=== PATIENT | male | born 1960 | race Caucasian/White ===

== ENCOUNTER 2017-06-17 07:15 | Observation (INO) | payer BC, OTHER ==
[2017-06-17 08:38] LABS: Urine Bacteria Absent (Absent); Urine Bilirubin Negative (Negative); Urine Glucose 3+(>=500 mg/dL) (Negative); Urine Nitrite Negative (Negative)
[2017-06-17 08:38] LABS: Hematocrit 43 % (42-52); Hemoglobin 15.2 g/dl (14.0-18.0); Mean Corpuscular HGB Conc 35 g/dl (31-36); Mean Corpuscular Hemoglobin 32 pg (27-31); Mean Corpuscular Volume 90 fL (80-94); Mean Platelet Volume 8 um3 (7.4-10.4); Red Blood Count 4.77 10^6/ul (4.0-5.4); Red Cell Distribution Width 14 % (10.5-15); White Blood Count 11.3 10^3/ul (3.5-10.8)
[2017-06-17 08:49] LABS: Albumin 4.1 g/dL (3.2-5.2); BUN/Creatinine Ratio 18.3 (8-20); Calcium 9.3 mg/dL (8.6-10.3); EGFR African American 108.1 (>60); Globulin 2.9 g/dL (2-4); Potassium 3.7 mmol/L (3.5-5.0); Total Bilirubin 1.9 mg/dL (0.2-1.0)
[2017-06-17] MEDS ORDERED: cefTRIAXone(*) 1 GM in NS 0.9% 50 ML* 50 ML IVPB ONE ×2 (09:05→10:34)
--- NOTE | 2017-06-17 09:55 | RAD ---
CLINICAL HISTORY: Right lower abdominal pain COMPARISON: September 15, 2013 TECHNIQUE: Multiple contiguous axial CT scans were obtained of the abdomen and pelvis, without intravenous contrast enhancement. Coronal and sagittal multiplanar reformations are submitted for review. Oral contrast was not administered. FINDINGS: The study is limited by the lack of intravenous contrast. This limits evaluation of the solid organs and vasculature. LUNG BASES: The lung bases are clear. LIVER: The liver is normal in shape, size, contour, and attenuation. BILE DUCTS: There is no intrahepatic or extrahepatic biliary dilatation. GALLBLADDER: The gallbladder is normal, without pericholecystic inflammatory change. PANCREAS: The pancreas is normal, without mass or ductal dilatation. SPLEEN: The spleen is at the upper limits of normal in size UPPER GI TRACT: Evaluation of the gastrointestinal tract is limited by incomplete gastric distention. The upper GI tract is unremarkable. SMALL BOWEL AND MESENTERY: The small bowel is normal in contour, course, and caliber. There is no obstruction or dilatation. COLON: There is extensive diverticulosis throughout the colon. There is no appreciable pericolonic inflammatory change. There is a tubular, vermiform, hollow viscus that is blind ending, and originates from the cecum, consistent with a normal appendix. There is no periappendiceal inflammatory change. This is best seen on coronal images 41 through 47. ADRENALS: Normal bilaterally. KIDNEYS: There are multiple small left renal calyceal stones measuring up to 0.3 cm in size. There is a 0.6 cm calculus of the left UVJ. There is mild left pelviectasis. BLADDER: As noted above, there is a left UVJ calculus. PELVIC ORGANS: The prostate is diffusely enlarged. The seminal vesicles are symmetric. AORTA: There is calcific atherosclerotic disease of the abdominal aorta and its branches, without aneurysmal dilatation IVC: Unremarkable LYMPH NODES: There is no lymphadenopathy by size criteria. ABDOMINAL WALL: There is a small fat-containing umbilical hernia. BONES AND SOFT TISSUES: Degenerative changes are noted OTHER: None IMPRESSION: 1. 0.6 CM CALCULUS OF THE LEFT UVJ WITH MILD PELVIECTASIS. 2. EXTENSIVE DIVERTICULOSIS THROUGHOUT THE COLON. 3. ENLARGED PROSTATE.
[2017-06-17] MEDS ORDERED: Acetaminophen TAB* 325 MG PO ONE (10:12)
[2017-06-17] MEDS ORDERED: NS 0.9% 1000 ML* 2,000 ML IV ONE (10:12)
[2017-06-17] MEDS ORDERED: Iohexol 180 (CONTRAST) 10 ML SDV IV ONE (10:56)
[2017-06-17] MEDS ORDERED: Dexamethasone IV* 4 MG/ML 1 ML (4 MG) ONE (11:18)
[2017-06-17] MEDS ORDERED: Famotidine IV* 10 MG/ML 2 ML (20 mg) ONE (11:18)
[2017-06-17] MEDS ORDERED: Ondansetron INJ* 2 MG/ML VIAL ONE (11:18)
[2017-06-17] MEDS ORDERED: Metoclopramide IV* 5 MG/ML 2 ML VIAL ONE (11:18)
[2017-06-17] MEDS ORDERED: Midazolam* 1 MG/ML 5 ML VIAL (5 MG) ONE (11:18)
[2017-06-17] MEDS ORDERED: Propofol* 10 MG/ML 20 ML BTL IV PUSH ONE (11:18)
[2017-06-17] MEDS ORDERED: fentaNYL* 50 MCG/ML 2 ML VIAL (100 MCG VIAL) ONE (11:18)
[2017-06-17] MEDS ORDERED: Chloroprocaine 2%* 20 ML VIAL ONE (11:19)
[2017-06-17] MEDS ORDERED: Acetaminophen TAB* 325 MG PO PRN (11:20)
[2017-06-17] MEDS ORDERED: Ondansetron INJ* 2 MG/ML VIAL IV PRN ×2 (11:20→11:24)
[2017-06-17] MEDS ORDERED: DiMENhydriNATE IV* 50 MG/ML VIAL IV PUSH PRN (11:24)
[2017-06-17] MEDS ORDERED: oxyCODONE/Acetamin 5/325 MG* TAB PO PRN (11:24)
[2017-06-17] MEDS ORDERED: Buffered Lidocaine 0.9% SYRIN* 5 ML/SYR SYRINGE INTRADERM ONE (11:24)
[2017-06-17] MEDS ORDERED: fentaNYL* 50 MCG/ML 2 ML VIAL (100 MCG VIAL) IV PRN (11:24)
[2017-06-17] MEDS ORDERED: NS 0.9% 1000 ML* 1,000 ML IV ONE (11:28)
[2017-06-17] MEDS ORDERED: NS 0.9% 1000 ML* 1,000 ML IV SCH (11:30)
--- NOTE | 2017-06-17 12:13 | RAD ---
HISTORY: Preop, abdominal pain COMPARISONS: April 28, 2005 VIEWS:1: Single frontal portable view of the chest at 7:25 AM FINDINGS: LINES AND TUBES: None. CARDIOMEDIASTINAL SILHOUETTE: The cardiomediastinal silhouette is normal for portable technique. PLEURA: The costophrenic angles are sharp. No pleural abnormalities are noted. LUNG PARENCHYMA: The lungs are clear. ABDOMEN: The upper abdomen is clear. There is no subphrenic gas. BONES AND SOFT TISSUES: No bone or soft tissue abnormalities are noted. IMPRESSION: NO ACTIVE CARDIOPULMONARY DISEASE.
--- NOTE | 2017-06-17 12:47 | RAD ---
INDICATION: Retrograde pyelogram and stent placement COMPARISONS: CT dated June 17, 2017 TECHNIQUE: Fluoroscopy was provided for a retrograde pyelogram and stent placement. Total fluoroscopy time is: 7 seconds FINDINGS: Contrast is noted within the renal collecting system. A ureteral stent is noted. IMPRESSION: FLUOROSCOPY WAS PROVIDED FOR A RETROGRADE PYELOGRAM AND STENT PLACEMENT CPT II Codes: 6045F
--- NOTE | 2017-06-17 12:52 | HP ---
CC: Dr. Adamson; Dr. Coronel * HISTORY AND PHYSICAL: DATE OF ADMISSION: 06/17/17 PRIMARY CARE PROVIDER: Dr. Adamson. ATTENDING PHYSICIAN WHILE IN THE HOSPITAL: Dr. Candace Loco * (report dictated by Diane Calvillo NP). CHIEF COMPLAINT: 1. Dysuria. 2. Urgency. 3. Pain with defecation. HISTORY OF PRESENTING ILLNESS: Mr. Stewart is a 56-year-old male patient who has a history of nephrolithiasis, hypertension, not taking any medications anymore. When he stopped smoking, the blood pressure improved. He has a history of GERD and BPH. He comes into the ER today. He says that last night, he got up. He was feeling weak, feeling tired, he felt febrile. He was having trouble urinating, urgency, frequency, and dysuria. He also had some pain with defecation, which he felt like more pressure. He had some urgency throughout the day yesterday, but the dysuria started last night. He was concerned because of the fever and the dysuria and he decided to come in to the ER today to be evaluated as he has had kidney stones in the past. He denied any nausea, vomiting, and he states that he has some flank pain on his right side. Denies having any chest pain or shortness of breath. Says that he is pretty active. He can walk up a flight of stairs. He does not get any chest pain or shortness of breath. The patient was evaluated in the ED. It was ultimately found on the CT scan that he did have a stone in his left ureter and it appeared that again he was noted to be febrile, had a little bit of a white count. In addition to this, also had abnormal UA. Because of this, hospitalist service was asked to evaluate for admission. PAST MEDICAL HISTORY: Significant for: 1. Nephrolithiasis. 2. GERD. 3. BPH. 4. Hypertension. PAST SURGICAL HISTORY: 1. He has had a hernia repair. 2. He has had kidney stone extraction. HOME MEDICATIONS: He takes Advil 1 to 2 tablets p.r.n. daily as needed for pain. ALLERGIES TO MEDICATIONS: No known drug allergies. FAMILY HISTORY: Mother had a history of end-stage renal disease. Father had a history of dementia. SOCIAL HISTORY: He is a former smoker. He rarely drinks alcohol. Surrogate decision maker is his . REVIEW OF SYSTEMS: There is documented fever here. He did admit to having fevers at home. He denies having any significant weight change. There was no double vision. There is no ear discharge. He denies having any rhinorrhea. No sore throat. No thyroid enlargement. He denied having any chest pain. There was no orthopnea. No nocturnal dyspnea. There was abdominal pain per my HPI. There was frequency, dysuria, and urgency. He does admit to having some right flank pain. He denies having any chest pain with exertion. Review of 14 systems completed, all others were negative. PHYSICAL EXAMINATION GENERAL: At this time, Mr. Stewart is a 56-year-old male patient. He appears to be well-nourished, well-developed. He does not appear to be in any acute distress. VITAL SIGNS: Blood pressure 119/59, pulse 81, respirations 17, O2 sat 96%, temperature 101.9. HEENT: Head is atraumatic and normocephalic. Eyes: EOMs are intact. Sclerae anicteric and not pale. Throat: Oral mucosa appears to be moist. No oropharyngeal erythema. NECK: Supple. LUNGS: Clear to auscultation bilaterally. No wheezes, rales, or rhonchi. HEART: Sounds S1, S2. Regular rate and rhythm. No murmurs, rubs, or gallops. ABDOMEN: Soft. It was flat. It was nontender. Bowel sounds present. He did have some CVA tenderness actually on the right side. EXTREMITIES: Pulses were 2+ throughout. He had no peripheral edema. He is able move all 4 extremities with 5/5 strength. NEUROLOGICAL: The patient is awake, alert, and oriented x3. No gross focal deficits. SKIN: Intact. LABORATORY DATA/DIAGNOSTIC STUDIES: Today revealed a WBC of 11.3, RBC of 4.77 , hemoglobin 15.2, hematocrit of 43, platelet count of 129. The chemistries revealed sodium 134, potassium 3.7, chloride of 102, bicarb 25, BUN 17, creatinine of 0.93. Glucose was 256, his lactic was 2.8, his calcium was 9.3, his total bilirubin 1.9, AST 13, ALT 11, alk phos 52, albumin 4.1. Urine showed 1+ blood, 3+ leukocyte esterase, 3+ wbc, 1+ rbc, and 3+ glucose. He did have an abdomen and pelvis CT, which showed: Impression: 1. A 0.6 cm calculus in the left UVJ with mild pelviectasis. 2. Extensive diverticulosis throughout the colon. 3. Enlarged prostate. He had an EKG obtained today, which showed a normal sinus rhythm, rate of 79, no ST elevation or T-wave inversions were noted. Old medical records were reviewed. ASSESSMENT AND PLAN: Mr. Stewart is a 56-year-old male patient coming into the ER today with complaints of dysuria, fever, and on evaluation found to have a left- sided nephrolithiasis. He will be admitted under observation status for: 1. Nephrolithiasis with associated infection and most likely prostatitis. At this point, again he did have pain with defecation. He certainly does have acute cystitis and he is tender on the right side to CVA palpation. My plan at this point is again Urology has been involved. They are going to go ahead and perform a ureteral stenting to the left side. I will hydrate him aggressively with 3 L of fluid. Blood cultures were sent. His lactic was mildly elevated at 2.8. We will repeat this. We will panculture him. He is on antibiotics currently in the form of Rocephin. He got gentamicin in the ED. We will continue the Rocephin and we will await culture and sensitivity. His RCRI, he has low risk for proposed procedure. I am just getting an EKG, the EKG looked stable and just waiting for the chest x-ray because of the history of smoking. 2. Elevated glucose. Again his random glucose is 256, he had 3+ glucose. I will check an A1c and if this is elevated, we may need to consider starting something like metformin and get in touch with [facility]. 3. Gastroesophageal reflux disease. Not an active issue. He can follow with his primary. 4. Benign prostatic hypertrophy. He is no longer taking Flomax. He can follow up with his primary urologist. 5. History of hypertension. His blood pressure here is stable at 119. We will monitor. 6. Hypertension: He can follow with his primary. 7. DVT prophylaxis. He is low risk. He will be placed on SCDs. 8. Code status. He is full code. 9. Fluids, electrolytes, and nutrition. I am going to with 3 L of fluid wide open right now and then in addition to this, we will go ahead and put him on normal saline at 120 for an hour. After the procedure, he can certainly proceed to a regular diet. TIME SPENT: On the admission approximately 60 minutes; greater than half the time was spent [id number] with the patient obtaining my history and physical; other half the time was spent going over the plan of care with the patient and implementing the plan of care. I did discuss the plan of care with my attending physician, Dr. Loco; she is in agreement. DIANE CALVILLO NP [id number]/CPS #: [id number] ISHMAEL
--- NOTE | 2017-06-17 16:39 | OP ---
CC: Dr. Adamson * DATE OF OPERATION: 06/17/17 - ROOM #332 DATE OF : 60 SURGEON: Bruce Coronel MD. ANESTHESIOLOGIST: Dr. Denis Ramirez ANESTHESIA: Spinal. PRE-OP DIAGNOSES: 1. Distal left ureteral calculus. 2. Urinary tract infection. POST-OP DIAGNOSES: 1. Distal left ureteral calculus. 2. Urinary tract infection. OPERATIVE PROCEDURE: 1. Cystoscopy. 2. Left retrograde pyelography and placement of left ureteral stent (6-Equatorial Guinean). INDICATION FOR PROCEDURE: Mr. Stewart is a 56-year-old white male who is a known stone former and who had required left ureteroscopy laser lithotripsy for a 1.2 cm calculus in August 2013. He was worked up 5 months ago because of microscopic hematuria and had a CT urogram, which showed a nonobstructing left renal calculus. Cystoscopy was negative. The patient presented to the emergency room this morning with urgency, frequency , burning on urination and bilateral back pain. In the emergency room, his urine was positive for infection. He spiked a temperature of 38.7. His white count was elevated with a shift. Noncontrast CT of the abdomen and pelvis showed a 6 mm calculus in the distal left ureter associated with mild to moderate hydronephrosis. Blood and urine cultures were obtained. IV Rocephin and gentamicin were given. The patient is taken to the operating room on an urgent basis for placement of left ureteral stent. PATHOLOGY AT CYSTOSCOPY: The penile and bulbar urethrae looked normal. The prostatic urethra measured about 2.5 cm in length and there was moderate enlargement and obstruction by the prostate. The urine in the bladder was cloudy. There were no changes of cystitis. There was a cluster of grayish crystals in the base of the bladder that had the appearance of calcium phosphate stones. Left retrograde pyelography showed moderate left hydronephrosis. There was no resistance to the introduction of the guidewire in the distal ureter. DESCRIPTION OF PROCEDURE: After successful spinal anesthesia, the patient was placed in the lithotomy position and was prepped and draped for a cystoscopy. Cystoscopy was performed. The bladder was entered and drained and the urine looked cloudy. Cystoscopy was then performed. The above findings were noted. A flexible-tip guidewire was then introduced into the left orifice and passed without difficulty into the area of the renal pelvis. An open-ended catheter was then fed on top of the guidewire and positioned in the renal pelvis; 2 cc of contrast were then injected delineating the collecting system. A size 6-Equatorial [place]inean stent was then placed with the proximal end coiling in renal pelvis and the distal end coiling inside the bladder. There was good drainage of contrast from the kidney with decompression of the hydronephrosis. Bladder was then emptied and the cystoscope was removed. The patient tolerated the procedure well and left the operating room in good condition. [id number]/CPS #: [id number] [facility]
[2017-06-17] MEDS: HYDROcodone/ACETAMIN 5-325 MG* 1 TAB PO PRN (19:58)
[2017-06-18 05:41] LABS: Hematocrit 38 % (42-52); Hemoglobin 13.2 g/dl (14.0-18.0); Mean Corpuscular HGB Conc 34 g/dl (31-36); Mean Corpuscular Hemoglobin 32 pg (27-31); Mean Corpuscular Volume 92 fL (80-94); Mean Platelet Volume 8 um3 (7.4-10.4); Red Blood Count 4.19 10^6/ul (4.0-5.4); Red Cell Distribution Width 13 % (10.5-15); White Blood Count 11.2 10^3/ul (3.5-10.8)
[2017-06-18 05:54] LABS: BUN/Creatinine Ratio 31.3 (8-20); Calcium 8.7 mg/dL (8.6-10.3); EGFR African American 166.4 (>60); EGFR Non-African American 129.4 (>60); Potassium 4.1 mmol/L (3.5-5.0)
[2017-06-18] MEDS: HYDROcodone/ACETAMIN 5-325 MG* 1 TAB PO PRN (07:30)
[2017-06-18 08:15] VITALS: BP 133/62
[2017-06-18] MEDS ORDERED: cefTRIAXone VIAL(*) 1,000 MG in NS 0.9% 50 ML* 50 ML IVPB SCH (10:00)
--- NOTE | 2017-06-19 05:20 | DS ---
CC: Dr. Bruce Coronel; Dr. Mauricio Adamson * DISCHARGE SUMMARY: DATE OF ADMISSION: 06/17/17 DATE OF DISCHARGE: 06/18/17 ADMISSION DIAGNOSES: 1. Nephrolithiasis. 2. Urinary tract infection. 3. Elevated blood glucose. SECONDARY DIAGNOSES: 1. Gastroesophageal reflux disease. 2. Benign prostatic hypertrophy. 3. Hypertension. DISCHARGE DIAGNOSES: 1. Nephrolithiasis. 2. Urinary tract infection. 3. Elevated blood glucose. 4. Gastroesophageal reflux disease. 5. Benign prostatic hypertrophy. 6. Hypertension. HOSPITAL COURSE: The patient is a 56-year-old gentleman who presented to [facility] with a chief complaint of pain on urination, urgency. Patient was found to have a 0.6 cm calculus in the left UVJ and enlarged prostate. The patient was seen by Urology in consultation. The patient was placed on Rocephin IV. The patient did have a cystoscopy and a left ureteral stent placement. The patient was feeling much improved by the date of discharge and anxious to go home. He will follow up with his PCP and Dr. Coronel as an outpatient. PHYSICAL EXAMINATION: On the date of discharge, well-developed, well-nourished gentleman, sitting up in bed, in no acute distress. Vital Signs: Blood pressure 133/62, pulse oxygenation 100% on room air, respiratory rate 18 breaths per minute, heart rate 54 beats per minute, temperature 98.1 degrees. HEENT: Normocephalic, atraumatic. Pupils equal, round, reactive to light. He has got moist mucous membranes. His neck is supple. No JVD, bruits, palpable thyroid, or lymphadenopathy. His chest is clear to auscultation and percussion bilaterally. Cardiovascular Exam: S1, S2 appreciated. Regular rate and rhythm. Abdominal Exam: Positive bowel sounds in all 4 quadrants, soft, nontender, nondistended. Extremities: No cyanosis, clubbing, or edema. +2 peripheral pulses bilaterally. Neuro: Alert and oriented x3. Moves all extremities. Skin: No rashes or abnormalities. STUDIES DONE WHILE IN THE HOSPITAL: Abdominal pelvic CT 06/17/17, impression: 0.6 cm calculus in the left UVJ with mild pelviectasis. Extensive diverticulosis throughout the colon and enlarged prostate. Retrograde pyelogram 06/17/17, impression: Fluoroscopy was provided for retrograde pyelogram and stent placement. Chest x-ray, 06/17/17, impression: No active cardiopulmonary disease. DISCHARGE MEDICATIONS: 1. Percocet 5/325 one tab every 6 hours as needed for pain. 2. Levaquin 500 mg daily for 7 more days. DISCHARGE PLAN: Patient is to discharged home. He is to follow up with his PCP this week and Dr. Coronel within 1 to 2 weeks. Patient is to return to ED if symptoms recur. There is concern his stone may not pass and still he may need further treatment such as lithotripsy but it is to be determined between him and his urologist. TIME SPENT: Over 40 minutes was spent on this discharge, more than 25 minutes of which was spent in direct [id number] contact with the patient in evaluation , physical exam, and counseling and coordination of care. [id number]/CPS #: [id number] MTDD
== END 2017-06-18 10:40 | disposition home or self-care (01) ==
LOC: ED 07:15 → OR 10:59 → SSU 13:45
PROVIDERS: ADMIT Urology; ATTEND Internal Medicine
DX: N13.6 Pyonephrosis (principal); R73.9 Hyperglycemia, unspecified; K21.9 Gastro-esophageal reflux disease without esophagitis; N40.0 Benign prostatic hyperplasia without lower urinary tract symptoms; I10 Essential (primary) hypertension; Z87.891 Personal history of nicotine dependence; K57.30 Diverticulosis of large intestine without perforation or abscess without bleeding
CPT/HCPCS: 36415; 71010; 74176; 74420; 80048; 80053; 81003; 81015; 83036; 83605; 85025; 85610; 87040; 87077; 87086; 87186; 93005; 96365; 99284; A9270-GY; C1876; G0378; J0696; J1100; J1580; J2250; J2400; J2405; J2704; J2765; J3010

== ENCOUNTER 2017-07-05 10:56 | Day surgery (SDC) | payer BC ==
--- NOTE | 2017-06-27 19:12 | HP ---
CC: Dr. Adamson * ADMITTING HISTORY AND PHYSICAL: DATE OF ADMISSION: 07/05/17 AGE/SEX: 56 years, male. PREOPERATIVE DIAGNOSES: 1. Left ureteral calculus. 2. Recent urinary tract infection. PLANNED PROCEDURE: Left ureteroscopy, possible laser and stent replacement. SURGEON: Dr. Razo. HISTORY OF PRESENT ILLNESS: Philippe Stewart Jr. is a 56-year-old gentleman who had recently undergone urgent left stent insertion for obstructing left ureteral calculus associated with a urinary tract infection. He had been treated with Levaquin and a followup urine culture obtained on 06/21/17 was negative. He is now being brought in for management of the left ureteral calculus. In addition, he also has a nonobstructing left renal calculus. PAST MEDICAL HISTORY: Significant for recurrent renal calculi. MEDICATIONS: On admission, oxycodone p.r.n. ALLERGIES: No known drug allergies. PHYSICAL EXAMINATION GENERAL: Reveals a pleasant, healthy-appearing middle-aged gentleman. VITAL SIGNS: Blood pressure is 138/90, pulse 90 per minute and regular, oxygen saturation 98% on room air. LUNGS: Clear bilaterally. CARDIOVASCULAR: Regular rate and rhythm. S1 and S2. ABDOMEN: Soft with mild left flank tenderness. IMPRESSION: A 56-year-old gentleman with a left ureteral calculus and associated urinary tract infection for which he had undergone placement of a left stent and treatment with antibiotics with resolution of the infection. PLAN: Left ureteroscopy, possible laser and stent replacement. [id number]/CPS #: [id number] MTDD
[~2017-07-05 10:56] MED LIST: Buffered Lidocaine 0.9% SYRIN* 5 ML/SYR SYRINGE INTRADERM ONE
[2017-07-05] MEDS ORDERED: cefTRIAXone(*) 2 GM ADDV.VIAL IVPB ONE (11:08)
[2017-07-05] MEDS ORDERED: Buffered Lidocaine 0.9% SYRIN* 5 ML/SYR SYRINGE ONE (11:09)
[2017-07-05] MEDS ORDERED: fentaNYL* 50 MCG/ML 2 ML VIAL (100 MCG VIAL) ONE (12:13)
[2017-07-05] MEDS ORDERED: Midazolam* 1 MG/ML 2 ML VIAL (2 MG) ONE (12:13)
[2017-07-05] MEDS ORDERED: Iohexol 180 (CONTRAST) 10 ML SDV IV ONE (12:28)
[2017-07-05] MEDS ORDERED: PROCHLORPERAZINE INJ 5 MG/ML 2 ML VIAL IV PRN (13:30)
[2017-07-05] MEDS ORDERED: HYDROcodone/ACETAMIN 5-325 MG* 1 TAB PO PRN (13:30)
[2017-07-05] MEDS ORDERED: fentaNYL* 50 MCG/ML 2 ML VIAL (100 MCG VIAL) IV PRN (13:30)
[2017-07-05] MEDS ORDERED: Acetaminophen TAB* 325 MG PO PRN (13:30)
[2017-07-05] MEDS ORDERED: DiMENhydriNATE IV* 50 MG/ML VIAL IV PUSH PRN (13:30)
[2017-07-05] MEDS ORDERED: Tamsulosin CAP* 0.4 MG ONE (14:10)
[2017-07-05 14:43] VITALS: BP 146/85
--- NOTE | 2017-07-05 14:43 | RAD ---
INDICATION: Stent replacement COMPARISONS: None relevant TECHNIQUE: Fluoroscopy was provided for a retrograde pyelogram and stent placement. Total fluoroscopy time is: 13 seconds FINDINGS: Spot images of the straight contrast within the renal collecting system. A ureteral stent is noted. IMPRESSION: FLUOROSCOPY WAS PROVIDED FOR A RETROGRADE PYELOGRAM AND STENT PLACEMENT CPT II Codes: 6045F
--- NOTE | 2017-07-05 15:21 | RAD ---
Indication: Postop LEFT retrograde pyelogram and stent replacement. Comparison: Intraoperative spot images of the same date. Technique: Supine view of the abdomen. Report: Unremarkable bowel gas pattern. Moderate stool in the colon without significant rectal distension. Typical partial obscuration of the renal fossa and course of the ureters by bowel contents No suspicious calcifications visualized at the level of the renal fossa or along the course of the ureters. LEFT ureteral stent in place. Multiple pelvic phleboliths noted. Unremarkable soft tissue contours. IMPRESSION: LEFT ureteral stent in place.
--- NOTE | 2017-07-06 06:00 | OP ---
CC: Dr. Adamson; Dr. Razo * DATE OF OPERATION: 07/05/17 - [facility] DATE OF : 60 SURGEON: Rusty Razo MD ANESTHESIOLOGIST: Michoacano Cortés MD ANESTHESIA: General. PRE-OP DIAGNOSES: 1. Left hydronephrosis. 2. Left ureteral calculus. 3. Recent urinary tract infection. POST-OP DIAGNOSES: 1. Left hydronephrosis. 2. Left ureteral calculus. 3. Recent urinary tract infection. OPERATIVE PROCEDURE: Cystoscopy, left stent removal, left retrograde pyelogram , left ureteroscopy and stone removal, left pyeloscopy, and left stent insertion. INDICATIONS: Philippe Stewart Junior is a 56-year-old gentleman, who had undergone urgent left stent insertion because of an obstructing calculus in the left distal ureter with an associated urinary tract infection. COMPLICATIONS: None. STENT USED: 7-Nigerian 28-cm silicone stent, left ureter. FINDINGS: 1. Markedly enlarged prostate. 2. Extensive calcifications noted on previously placed stent with residual left hydronephrosis noted. 3. Two soft friable calculi noted in left ureter. POSTOPERATIVE CONDITION: Stable. DESCRIPTION OF PROCEDURE: After induction of general anesthesia, the patient was placed in dorsal lithotomy position. Sequential compression devices were in place and functioning. Initial cystoscopy revealed a normal-appearing urethra, a moderately enlarged prostate. The bladder was examined, the stent was seen exiting from the left orifice with extensive calcifications on the distal surface of the stent. The stent was removed. Retrograde pyelogram revealed left hydronephrosis. A 6-Nigerian semi-rigid ureteroscope was introduced and advanced under direct vision. In the distal to mid ureter, there were 2 calculi noted. These did not have the typical appearance of calcium oxalate stones, but were whitish and friable. Using a 3-prong grasper, they were removed and broke up into smaller fragments which were sent for analysis. The ureteroscope was advanced all the way up into the renal pelvis and pyeloscopy was performed. The renal pelvis and the calyces were dilated. I did not see any additional calculi. The ureteroscope was withdrawn under direct vision and a 7-Nigerian 28-cm silicone stent was introduced without difficulty. The plan is to obtain a postoperative x-ray as the patient also has known left renal calculus that has not been treated and he will then be scheduled for stent removal depending on the x-ray findings. [id number]/[facility] #: [id number] MTDRose
== END 2017-07-05 14:55 | disposition home or self-care (01) ==
LOC: OR 10:56
PROVIDERS: ATTEND Urology
DX: N13.2 Hydronephrosis with renal and ureteral calculous obstruction (principal)
CPT/HCPCS: 74000; 74420; 82365; 88300; C1876; J0696; J1580; J2250; J3010

== ENCOUNTER 2018-01-31 09:50 | Day surgery (SDC) | payer BC ==
[2018-01-31] MEDS ORDERED: Buffered Lidocaine 0.9% SYRIN* 5 ML/SYR SYRINGE ONE (10:11)
[2018-01-31] MEDS ORDERED: Lidocaine 1% MPF wEPI 200,000* 30 ML SDV ONE (12:30)
[2018-01-31] MEDS ORDERED: Bupivacaine 0.25% SDV* 30 ML ONE (12:30)
[2018-01-31] MEDS ORDERED: Midazolam* 1 MG/ML 5 ML VIAL (5 MG) ONE (12:55)
[2018-01-31] MEDS ORDERED: fentaNYL* 50 MCG/ML 2 ML VIAL (100 MCG VIAL) ONE ×3 (12:55→15:28)
[2018-01-31] MEDS ORDERED: ceFAZolin 2 GM PREMIX (*) 2 GM/50 ML BAG IVPB ONE (12:55)
[2018-01-31] MEDS ORDERED: Propofol* 10 MG/ML 20 ML BTL IV PUSH ONE (13:38)
[2018-01-31] MEDS ORDERED: Lidocaine 2% PF * 5 ML VIAL ONE (13:38)
[2018-01-31] MEDS ORDERED: EPHEDrine (Pressors)* 50 MG/ML VIAL ONE (13:47)
[2018-01-31] MEDS ORDERED: Ketorolac INJ* 30 MG/ML 1 ML VIAL ONE (13:47)
[2018-01-31] MEDS ORDERED: DiMENhydriNATE IV* 50 MG/ML VIAL IV PUSH PRN (14:07)
[2018-01-31] MEDS ORDERED: HYDROcodone/ACETAMIN 5-325 MG* 1 TAB PO PRN (14:07)
[2018-01-31] MEDS ORDERED: oxyCODONE/Acetamin 5/325 MG* TAB PO PRN (14:07)
[2018-01-31] MEDS ORDERED: fentaNYL* 50 MCG/ML 2 ML VIAL (100 MCG VIAL) IV PRN (14:07)
[2018-01-31] MEDS ORDERED: Naloxone* 0.4 MG/ML 1 ML VIAL IV PRN (14:07)
[2018-01-31] MEDS ORDERED: Ondansetron INJ* 2 MG/ML VIAL ONE (14:11)
[2018-01-31] MEDS ORDERED: oxyCODONE/Acetamin 5/325 MG* TAB ONE (15:28)
[2018-01-31 15:37] VITALS: BP 114/75
--- NOTE | 2018-02-03 06:31 | OP ---
DATE OF OPERATION: 01/31/18 - [facility] DATE OF : 60 SURGEON: Augustin Delgadillo MD. MELTER HELPER: None available. ANESTHESIOLOGIST: Dr. Mireles. ANESTHESIA: General. PRE-OP DIAGNOSIS: Medial meniscus tear. POST-OP DIAGNOSIS: Medial meniscus tear with medial femoral condyle, medial compartment chondrosis. OPERATIVE PROCEDURE: Left knee arthroscopy with partial lateral meniscectomy, subtotal medial meniscectomy, and chondroplasty of medial femoral condyle. COMPLICATIONS: None. ESTIMATED BLOOD LOSS: Minimal. INDICATIONS: Philippe Stewart is a 57-year-old male who has had several months of persistent catching and locking type symptoms since 10/18/15. He had acute injury. He has failed conservative management including physical therapy, anti- inflammatories, and has elected to proceed with surgical treatment. He has persistent mechanical symptoms. Risks and benefits of surgery were discussed at length including but not limited to bleeding, infection, damage to nerves, vessels, surrounding structures, wound nonhealing, persistent pain, need for further surgery, scarring, stiffness, incomplete relief of symptoms, and risks of anesthesia. DESCRIPTION OF PROCEDURE: The patient was greeted in the preoperative area by the attending surgeon. Correct extremity was marked and consent was confirmed. The patient was brought back to the operating suite where he was placed in supine position on the operating room table. He then underwent general anesthesia and endotracheal intubation after which he was appropriately positioned on the bed. An unsterile tourniquet was placed high on the proximal thigh. Lateral post was positioned. The left leg was then prepped and draped in the usual sterile beginning with chlorhexidine soap, scrub, alcohol wipe, and a final prep of ChloraPrep. After appropriate surgical pause indicating side, site, and procedure, administration of antibiotics, the knee was intraarticularly injected with 1% lidocaine with epi. An anterolateral portal was made sharply with an 11 blade. Scope was introduced into the joint. Joint was examined. There were grade 0 to 1 changes of the patellofemoral joint. The medial and lateral gutters were intact with erythema but no loose bodies. The ACL and PCL were intact. In the notch, there was abundant fat pad anteriorly that was debrided back. Scope was brought into the medial compartment where there was evidence of chondrosis grade 2 changes to the medial femoral condyle and medial plateau. There is evidence of a displaced parrot beak type tear beginning anteriorly extending throughout the entirety of the meniscus. The flaps were debrided back using biters and patito until stable layer. The shaver was used to do a chondroplasty in the medial compartment, medial femoral condyle and medial plateau. The knee was then placed in the lateral position. Synovitis was removed from the anterior aspect of the lateral compartment. There was mild amount of partial tearing of the root as well as body of the lateral meniscus, which was debrided back using the shaver. Hemostasis was obtained. The knee was thoroughly lavaged and removed any loose fluid and debris. The wounds were copiously irrigated with sterile saline. Portals were closed with 3-0 nylon. The knee was intraarticularly injected with 0.25% Marcaine plain. Sterile dressings were applied as well as Cryo/Cuff. He was awoken from anesthesia and transferred to the PACU in stable condition. POSTOPERATIVE PLAN: He will be on crutches for 3 to 5 days. He will be discharged on pain medication. I will see the patient back in 14 days. DVT prophylaxis was considered but deferred due to no previous personal or family history. [id number]/[facility] #: [id number] ISHMAEL
== END 2018-01-31 16:10 | disposition home or self-care (01) ==
LOC: OR 09:50
PROVIDERS: ATTEND Orthopaedic Surgery
DX: S83.232A Complex tear of medial meniscus, current injury, left knee, initial encounter (principal); S83.282A Other tear of lateral meniscus, current injury, left knee, initial encounter; X58.XXXA Exposure to other specified factors, initial encounter; Y92.9 Unspecified place or not applicable; I10 Essential (primary) hypertension; K21.9 Gastro-esophageal reflux disease without esophagitis; F41.8 Other specified anxiety disorders; Z87.891 Personal history of nicotine dependence
CPT/HCPCS: A9270-GY; J0690; J1885; J2001; J2250; J2405; J2704; J3010